=== PATIENT | female | born 1970 ===

== ENCOUNTER 2024-11-17 06:13 | Day surgery (SDC) | payer BC, SELFPAY ==
[2024-11-16 14:06] VITALS: BMI 24.1
[2024-11-17 07:25] VITALS: BMI 24.2
[2024-11-17] MEDS: NORMOSOL-R/PLASMALYTE-A 1000 IV (07:32)
[2024-11-17] MEDS: TYLENOL 1000 MG PO (07:33)
[2024-11-17 07:36] VITALS: BMI 24.2
[2024-11-17 07:37] VITALS: BP 136/82
[2024-11-17 10:09] VITALS: BP 126/76
[2024-11-17 10:15] VITALS: BP 117/72
[2024-11-17 10:30] VITALS: BP 123/73
[2024-11-17 10:45] VITALS: BP 127/77
== END 2024-11-17 10:55 | disposition home or self-care (01) ==
LOC: SDS 06:13
PROVIDERS: ATTENDING PHYSICIAN Surgery; FAMILY PHYSICIAN Family Medicine
DX: Z45.1 Encounter for adjustment and management of infusion pump (principal); Z08 Encounter for follow-up examination after completed treatment for malignant neoplasm; Z85.048 Personal history of other malignant neoplasm of rectum, rectosigmoid junction, and anus
CPT/HCPCS: 45378; 36590; 36415; 93005